=== PATIENT | female | born 1995 | race Caucasian/White ===

== ENCOUNTER 2017-08-25 23:32 | Inpatient (IN) | payer OTHER, BC ==
[~2017-08-25] VITALS: Ht 172.7 cm; Wt 83.6 kg
[2017-08-26] VITALS (36 sets, daily range): BP systolic 106–147; BP diastolic 55–84; PULSE 18–98; TEMP 97.2–98.7
[2017-08-26] MEDS ORDERED: PRENATAL MVI
[2017-08-26 00:51] LABS: BASO % 0.3 % (0.0-2.0); EOS # 0.1 (0.0-0.7); EOS % 0.5 % (0-4.0); GRAN # 11.1 (1.4-6.5); GRAN % 80.6 % (42.2-75.2); HEMATOCRIT 35.7 % (37.0-47.0); HEMOGLOBIN 12.5 g/dl (12.5-16.0); LYMPH # 1.6 (1.2-3.4); LYMPH % 11.2 % (20.0-51.0); MEAN CELL VOLUME 90 fl (80.0-100.0); MEAN CORPUSCULAR HEMOGLOBIN 32 pg (27.0-31.0); MEAN CORPUSCULAR HGB CONC 35 g/dl (33.0-37.0); MEAN PLATELET VOLUME 9.8 fl (7.4-10.4); PLATELET COUNT 261 K/mm3 (130-400); RED BLOOD COUNT 3.97 M/mm3 (4.10-5.30)
[2017-08-26] MEDS ORDERED: MOTRIN 800800 MG/TAB PO (10:48)
[2017-08-26] MEDS ORDERED: PERCOCET 325 MG1 TA2 PO (10:48)
[2017-08-27 08:10] VITALS: BP 132/89; PULSE 93; TEMP 97.6
== END 2017-08-27 16:10 | disposition home or self-care (01) | DRG 775 ==
LOC: LDRO 23:32 → OB 08-26 00:11 → LDR 08-26 00:11 → OB 08-26 10:04
PROVIDERS: Student in an Organized Health Care Education/Training Program
PROC: 10E0XZZ Delivery of Products of Conception, External Approach (ICD-10-PCS; principal; 2017-08-26)
PROC: 0KQM0ZZ Repair Perineum Muscle, Open Approach (ICD-10-PCS; 2017-08-26)
PROC: 0UQMXZZ Repair Vulva, External Approach (ICD-10-PCS; 2017-08-26)
DX: O99.89 Other specified diseases and conditions complicating pregnancy, childbirth and the puerperium (principal); N87.9 Dysplasia of cervix uteri, unspecified; O70.1 Second degree perineal laceration during delivery; O71.82 Other specified trauma to perineum and vulva; O77.0 Labor and delivery complicated by meconium in amniotic fluid; Z3A.38 38 weeks gestation of pregnancy; Z37.0 Single live birth
CPT/HCPCS: J1200; J2590; J2795; J7120

== ENCOUNTER 2019-11-05 21:05 | Inpatient (IN) | payer OTHER ==
[2019-11-05] VITALS (10 sets, daily range): BP systolic 100–129; BP diastolic 61–83; PULSE 56–92
[~2019-11-05] VITALS: Ht 170.2 cm; Wt 78.6 kg
--- NOTE | 2019-11-05 20:50 | NUR ---
2049- PT PRESENTS TO LDR COMPLAINING OF CONTRACTIONS, AMBULATORY TO ROOM LR5, CHANGED INTO GOWN. 2056- EFM X2 APPLIED, PT HAS NEGATIVE COVID SCREENING, DENIES LEAKING FLUID, VAGINAL BLEEDING. STATES SHE IS FEELING BABY MOVE. 2099- SVE BY THIS NURSE 4-/-3 WITH BULGING BAG. PLAN OF CARE DISCUSSED. 2105- DR QUEVEDO CALLED CHARTED.
[~2019-11-05 21:05] MED LIST: MOTRIN 800800 MG/TAB PO; PERCOCET 325 MG1 TA2 PO; PRENATAL MVI
--- NOTE | 2019-11-05 21:50 | NUR ---
2150 SITTING ON SIDE OF BED FOR EPID PLACEMENT. SEE ANESTHSIA RECORD FOR MORE INFORMATION.
[2019-11-05 21:57] LABS: BASO % 0.2 % (0.0-2.0); EOS # 0.1 (0.0-0.7); EOS % 0.6 % (0-4.0); GRAN # 11.4 (1.4-6.5); GRAN % 80.9 % (42.2-75.2); HEMOGLOBIN 12.1 g/dl (12.5-16.0); LYMPH # 1.5 (1.2-3.4); LYMPH % 10.8 % (20.0-51.0); MEAN CELL VOLUME 93 fl (80.0-100.0); MEAN CORPUSCULAR HEMOGLOBIN 32 pg (27.0-31.0); MEAN CORPUSCULAR HGB CONC 35 g/dl (33.0-37.0); MEAN PLATELET VOLUME 9.5 fl (7.4-10.4); MONO # 0.9 (0.1-0.6); MONO % 6.6 % (1.7-9.3); PLATELET COUNT 214 K/mm3 (130-400); RED BLOOD COUNT 3.76 M/mm3 (4.10-5.30)
--- NOTE | 2019-11-05 22:55 | NUR ---
2255 DR QUEVEDO HERE. INSTRUCTED TO PUSH WITH CONTRACTIONS. 2304 DEL VIABLE FE OVER INTACT PERINEUM. APGARS . IV CONTS TO INFUSE. REMAINS IN LR5.
--- NOTE | 2019-11-05 23:37 | NUR ---
2337 SROM WITH LIGHT MECONIUM FLUID NOTED. COMPLETE DILITATION AND +[address] QUEVEDO CALLED TO COME TO DELIVERY. READIED FOR DELIVERY.
[2019-11-06] VITALS (8 sets, daily range): BP systolic 105–126; BP diastolic 56–75; PULSE 66–92; TEMP 97.8–99
--- NOTE | 2019-11-06 01:00 | NUR ---
0100 IV TO INT. EPID CATH DCD. UP TO BR WITH ASSIST AND VOIDED 100CC. AMB TO 207 AND NEISHA WELL.
[2019-11-06] MEDS ORDERED: MOTRIN 800800 MG/TAB PO (08:34)
== END 2019-11-06 23:57 | disposition home or self-care (01) | DRG 807 ==
LOC: LDRO 21:05 → LDR 21:06 → OB 21:06
PROVIDERS: Obstetrics & Gynecology; ADMIT Obstetrics & Gynecology
PROC: 10E0XZZ Delivery of Products of Conception, External Approach (ICD-10-PCS; principal; 2019-11-05)
DX: O99.02 Anemia complicating childbirth (principal); Z37.0 Single live birth; O99.62 Diseases of the digestive system complicating childbirth; Z3A.39 39 weeks gestation of pregnancy; O77.0 Labor and delivery complicated by meconium in amniotic fluid; D64.9 Anemia, unspecified; K21.9 Gastro-esophageal reflux disease without esophagitis
CPT/HCPCS: J2590; J2795; J7120

== ENCOUNTER 2022-01-07 05:00 | Inpatient (IN) | payer OTHER ==
[2022-01-07] VITALS (17 sets, daily range): BP systolic 102–130; BP diastolic 43–82; PULSE 50–89; TEMP 97.5–98.9
[~2022-01-07] VITALS: Ht 152.4 cm; Wt 77.3 kg
--- NOTE | 2022-01-07 05:36 | NUR ---
@1154 PATIENT ARRIVED ON THE UNIT WITH A COMPLAINT OF UTERINE CONTRACTIONS ACCOMPANIED BY SPOUSE.
--- NOTE | 2022-01-07 06:19 | NUR ---
@0619 WAS NOTIFIED REGARDING PT SVE /-2 @0615 PATIENT INITIAL EXAM @0530 SVE /2 SAID ITS OK. SAID ADMIT PATIENT. BEDSIDE REPORT WAS GIVEN TO CHEIKH CARL.
[2022-01-07 06:50] LABS: BASO # 0.1 K/mm3 (0.0-0.2); BASO % 0.3 % (0.0-2.0); EOS % 0.3 % (0.0-4.0); GRAN # 13.9 K/mm3 (1.4-6.5); GRAN % 87.2 % (42.2-75.2); HEMOGLOBIN 11.4 g/dl (12.5-16.0); LYMPH # 1.2 K/mm3 (1.2-3.4); LYMPH % 7.4 % (20.0-51.0); MEAN CELL VOLUME 89 fl (80.0-100.0); MEAN CORPUSCULAR HEMOGLOBIN 31 pg (27-31); MEAN CORPUSCULAR HGB CONC 35 g/dl (33.0-37.0); MEAN PLATELET VOLUME 9.5 fl (7.4-10.4); MONO # 0.7 K/mm3 (0.1-0.6); MONO % 4.4 % (1.7-9.3); PLATELET COUNT 273 K/mm3 (130-400); RED BLOOD COUNT 3.67 M/mm3 (4.10-5.30); REDCELL DISTRIBUTION WIDTH-CV 13.2 % (11.5-14.5)
[2022-01-07 06:53] LABS: HEMATOCRIT 32.8 % (37.0-47.0)
--- NOTE | 2022-01-07 09:17 | NUR ---
0625 - 20G STARTED TO LEFT WRIST X2 ATTEMPTS BY A MAMADOU RN, LR BOLUS STARTED FOR EPIDURAL
--- NOTE | 2022-01-07 09:23 | NUR ---
0635 - RAVI PAGE BLACK JACK DEALER NOTIFIED PT REQUESTING EPIDURAL
--- NOTE | 2022-01-07 09:27 | NUR ---
0708 - PILE DRIVER OPERATOR TO ROOM FOR EPIDURAL, PT UP ON SIDE OF BED FOR EPIDURAL PLACEMENT RN REMAINS AT BEDSIDE WITH PT
--- NOTE | 2022-01-07 09:54 | NUR ---
0720 SUPINE AFTER EPIDURAL 0725 TO WEDGED LEFT WITH PILLOW, PT FEELING MORE COMFORTABLE NOW
--- NOTE | 2022-01-07 10:13 | NUR ---
0752 - FHT'S DOWN 60-70'S, SVE DONE BY THIS RN, 1, PT LEFT LATERAL, THEN RIGHT LATERAL WITH NO IMPROVEMENT 0753 - DR QUEVEDO TO ROOM, HUNTER GUIDE TO ROOM 0754 - SVE BY DR QUEVEDO, SVE CERVIX STILL THERE, BUT CAN STRETCH, WANTS PT TO START PUSHING 0756 - PT UP IN FOOT PEDALS, LABOR ROOM CONVERTED TO DELIVERY ROOM
[2022-01-07] MEDS ORDERED: MOTRIN 800800 MG/TAB PO (10:16)
--- NOTE | 2022-01-07 10:24 | NUR ---
804 - PUSHING WITH YANDY, RN AND DR QUEVEDO REMAIN AT BEDSIDE COACHING PT ON PUSHING 810 - DELIVERY OF VIABLE MALE INFANT AFTER MILD SHOULDER DYSTOCIA <30 SECONDS, RESLOVED WITH RAMESH AND DOWNWARD TRACTION NUCHAL CORD X2, SPONTANEOUS CRY PRESENT, TO MOTHERS ABD, DRIED AND STIMULATED WITH GOOD RESPONSE, CORD CUT BY FATHER
[2022-01-08 01:15] VITALS: BP 100/56; PULSE 60; TEMP 98.5
[2022-01-08 08:03] VITALS: BP 116/73; PULSE 52; TEMP 97.8
--- NOTE | 2022-01-08 09:54 | NUR ---
Initial visit; Patient thanked Ships Or Barges Loader for offering congratulations and God's blessings for the of her son. Ships Or Barges Loader thanked mom for choosing [place].
[2022-01-08 17:09] VITALS: BP 113/61; PULSE 73; TEMP 97.4
[2022-01-08 20:01] VITALS: BP 115/64; PULSE 57; TEMP 97.7
[2022-01-09 09:05] VITALS: BP 102/65; PULSE 60
--- NOTE | 2022-01-09 11:00 | NUR ---
Discharge instructions and follow up care reviewed with pt and at the bedside. Both verbalized an understanding, agreed with the plan and states no questions or concerns at this time.
== END 2022-01-09 11:35 | disposition home or self-care (01) | DRG 807 ==
LOC: LDRO 05:00 → OB 06:27 → LDR 06:27 → OB 12:55
PROVIDERS: Student in an Organized Health Care Education/Training Program; ADMIT Obstetrics & Gynecology
PROC: 10E0XZZ Delivery of Products of Conception, External Approach (ICD-10-PCS; principal; 2022-01-07)
PROC: 10907ZC Drainage of Amniotic Fluid, Therapeutic from Products of Conception, Via Natural or Artificial Opening (ICD-10-PCS; 2022-01-07)
PROC: 3E033VJ Introduction of Other Hormone into Peripheral Vein, Percutaneous Approach (ICD-10-PCS; 2022-01-07)
DX: O48.0 Post-term pregnancy (principal); Z37.0 Single live birth; Z3A.40 40 weeks gestation of pregnancy; O69.81X0 Labor and delivery complicated by cord around neck, without compression, not applicable or unspecified; O76 Abnormality in fetal heart rate and rhythm complicating labor and delivery
CPT/HCPCS: J2590; J2795; J7120

== ENCOUNTER 2023-08-31 06:41 | Inpatient (IN) | payer MEDICAID ==
[2023-08-31] VITALS (21 sets, daily range): BP systolic 102–143; BP diastolic 51–84; PULSE 59–97; TEMP 97.5–98
[~2023-08-31] VITALS: Ht 170.2 cm; Wt 80.5 kg
--- NOTE | 2023-08-31 06:50 | NUR ---
PATIENT AMBULATED ON THE UNIT AND TO LABOR ROOM. EFM AND TOCO INITIATED. SP02 MONITOR INITATIED.PATIENT REPORTS NO LEAKING OF FLUID OR BLEEDING. PATIENT REPORTS MILD CONTRACTIONS AND NORMAL MOVEMENT. PATIENT SET UP FOR INDUCTION. PLAN OF CARE REVIEWED.
[2023-08-31] MEDS ORDERED: LR & Oxytocin 500 ML IV SCH (07:30)
[2023-08-31] MEDS ORDERED: LR 1,000 ML IV SCH (07:30)
[2023-08-31 07:39] LABS: BASO % 0.4 % (0.0-2.0); EOS # 0.1 K/mm3 (0.0-0.7); EOS % 1.2 % (0.0-4.0); GRAN # 6.6 K/mm3 (1.4-6.5); GRAN % 69.6 % (42.2-75.2); LYMPH # 1.8 K/mm3 (1.2-3.4); LYMPH % 18.7 % (20.0-51.0); MEAN CELL VOLUME 92 fl (80.0-100.0); MEAN CORPUSCULAR HEMOGLOBIN 31 pg (27-31); MEAN CORPUSCULAR HGB CONC 34 g/dl (33.0-37.0); MEAN PLATELET VOLUME 9.1 fl (7.4-10.4); MONO # 0.9 K/mm3 (0.1-0.6); PLATELET COUNT 334 K/mm3 (130-400); RED BLOOD COUNT 3.84 M/mm3 (4.10-5.30); REDCELL DISTRIBUTION WIDTH-CV 13.7 % (11.5-14.5)
[2023-08-31 07:40] LABS: HEMATOCRIT 35.4 % (37.0-47.0)
[2023-08-31] MEDS ORDERED: diphenhydrAMINE 50 MG/ML 1 ML VIAL IV PRN (09:15)
[2023-08-31] MEDS ORDERED: diphenhydrAMINE 25 MG CAP PO PRN (09:15)
[2023-08-31] MEDS ORDERED: Ondansetron 4 MG/2 ML VIAL IV PRN (09:15)
[2023-08-31] MEDS ORDERED: Naloxone 0.4 MG/ML VIAL IV PRN ×3 (09:15→13:45)
[2023-08-31] MEDS ORDERED: ePHEDrine 50 MG/10 ML VIAL IV PRN (09:15)
--- NOTE | 2023-08-31 09:15 | NUR ---
DIFFICULTY TRACING FHR D/T MATERNAL POSITION. THIS RN AT BEDSIDE FHR AUDIBLE ON MONITOR. EFM ADJUSTED.
--- NOTE | 2023-08-31 09:45 | NUR ---
DIFFICULTY TRACING FHR D/T MATERNAL POSITION. THIS RN AT BEDSIDE FHR AUDIBLE ON MONITOR. EFM ADJUSTED.
--- NOTE | 2023-08-31 10:00 | NUR ---
PATIENT AMBULATED UP TO BATHROOM. FHR TRACING INTERMITTENTLY. EFM ADJUSTED.
[2023-08-31] MEDS ORDERED: ROPivacaine PF 0.2% 200 ML IV ONE (12:23)
--- NOTE | 2023-08-31 12:26 | NUR ---
1226 SERA MARTÍNEZ AT BEDSIDE. PROCEDURE REVIEWED AND CONSENT OBTAINED. PATIENT SETUP FOR EPIDURAL. SPO2 MONITOR INITATIED. EFM TRACING MATERNAL HEART RATE CORRELATES WITH SP02 MONITOR. 1236 TEST DOSE GIVEN. SEE ANESTHESIA RECORD FOR DETAILS. 1245 PATIENT ASSISTED TO SUPINE WEDGED LEFT POSITION. EFM AND TOCO ADJUSTED.
[2023-08-31] MEDS ORDERED: NS 10 ML IV ONE (13:08)
--- NOTE | 2023-08-31 13:20 | NUR ---
1240 PATIENT ASSISTED TO WEDGE LEFT POSITION FOLLOWING EPIDURAL PLACEMENT AND REPORTS CONTINUED PAIN WITH CONTRACTIONS. 1253 THIS RN REMAINS AT THE BEDSIDE. PATIENT REPORTS CONTRACTION PAIN IS MORE VAGINAL PRESSURE WITH RECURRENT EARLY DECELS NOTED. SVE 6/90/-2 PER CHEIKH MARIE. 1303 PITOCIN INFUSION STOPPED DUE TO RECURRENT EARLY DECELS TO THE 60'S AND 70'S. PT REPORTS CONTINUOUS VAGINAL PRESSURE. SVE 7-8/90/-2 PER CHEIKH MARIE. 1305 NOTIFIED OF RECURRENT EARLIES, PT REPORTS OF CONTINUED PRESSURE AND SVE. MD REPORTS SHE IS ON HER WAY FOR DELIVERY. 1311 DR STANLEY AT THE BEDSIDE. FHR TRACING REVIEWED. SVE: 9/100/-[address] STANLEY. 1312 PATIENT PLACED SUPINE LEFT LATERAL WITH RIGHT LEG IN STIRRUP. PT REPORTS INCREASED PRESSURE. 1314 AT THE BEDSIDE. SVE DONE. TRAFFIC RATE CLERK CALLED TO ROOM AND PT SET UP FOR DELIVERY. 1319 PUSHING STARTED. 1320 OF VIABLE MALE . PLACED ON MOM'S ABDOMEN. CORDS CLAMPED AND CUT. CARE OF THE GIVEN TO NURSERY RN AT THE BEDSIDE. 1322 OF PLACENTA. PITOCIN STARTED 333ML/HR PER ORDER AND PROTOCOL. FUNDUS FIRM AND LOCHIA WNL. PERINEUM INTACT. RECOVERY STARTED.
[2023-08-31] MEDS ORDERED: Magnes Hydrox (MOM) 80 MG/ML 30 ML CUP PO PRN ×2 (13:30→13:45)
[2023-08-31] MEDS ORDERED: Phenylephrine/Mineral Oil/Petrolatum 57 GM TUBE RC PRN ×2 (13:30→13:45)
[2023-08-31] MEDS ORDERED: Loratadine 10 MG TAB PO PRN ×2 (13:30→13:45)
[2023-08-31] MEDS ORDERED: Ibuprofen 800 MG TAB PO SCH ×2 (13:30→13:45)
[2023-08-31] MEDS ORDERED: oxyCODONE 5 MG TAB PO PRN ×2 (13:30→13:45)
[2023-08-31] MEDS ORDERED: Witch Hazel 50% Pads Bulk TUB TP PRN ×2 (13:30→13:45)
[2023-08-31] MEDS ORDERED: Acetaminophen 500 MG TAB PO PRN ×2 (13:30→13:45)
[2023-08-31] MEDS ORDERED: Mag/Al Hydrox/Simeth Susp 30 ML CUP PO PRN ×2 (13:30→13:45)
[2023-08-31] MEDS ORDERED: Measles/Mumps/Rubella Virus Vaccine Live w Diluent 0.5 ML VIAL SQ SCH ×2 (13:30→13:45)
--- NOTE | 2023-08-31 16:15 | NUR ---
PATIENT AMBULATED UP TO BATHROOM [facility] ASSIST W/O COMPLICATIONS. PATIENT UNABLE TO VOID. PERICARE COMPLETED. PATIENT AMBULATED TO AND ORIENTED TO POSTAPRTUM ROOM.
[2023-08-31] MEDS ORDERED: Sennosides/Docusate 8.6-50 MG TAB PO SCH ×2 (17:00)
[2023-08-31] MEDS ORDERED: traZODone 50 MG TAB PO PRN ×2 (21:00)
[2023-09-01 00:15] VITALS: BP 118/63; PULSE 99; TEMP 98
[2023-09-01 04:30] VITALS: BP 100/51; PULSE 66; TEMP 97.7
[2023-09-01 07:45] VITALS: BP 113/58; PULSE 83; TEMP 97.6
[2023-09-01 12:10] VITALS: BP 117/72; PULSE 94
--- NOTE | 2023-09-01 13:38 | NUR ---
Initial visit; Parents thanked Claims Associate for offering congratulations and God's blessings for the of their son. Claims Associate thanked family for choosing [place] and opes their experience here has been a good one, to which they replied that it has been very good.
== END 2023-09-01 16:05 | disposition home or self-care (01) | DRG 807 ==
LOC: OB 06:41 → LDR 06:41 → OB 16:15
PROVIDERS: ADMIT Obstetrics & Gynecology
PROC: 10E0XZZ Delivery of Products of Conception, External Approach (ICD-10-PCS; principal; 2023-08-31)
PROC: 10907ZC Drainage of Amniotic Fluid, Therapeutic from Products of Conception, Via Natural or Artificial Opening (ICD-10-PCS; 2023-08-31)
PROC: 3E033VJ Introduction of Other Hormone into Peripheral Vein, Percutaneous Approach (ICD-10-PCS; 2023-08-31)
DX: O48.0 Post-term pregnancy (principal); Z37.0 Single live birth; O69.81X0 Labor and delivery complicated by cord around neck, without compression, not applicable or unspecified; Z3A.40 40 weeks gestation of pregnancy
CPT/HCPCS: J2590; J2795; J7120